=== PATIENT | female | born 1980 | race Two or more races ===

== ENCOUNTER 2023-05-19 12:49 | Inpatient (IN) | payer OTHER ==
[~2023-05-19] VITALS: Ht 175.3 cm; Wt 63.6 kg
[~2023-05-19 12:49] MED LIST: ACET-2247 PO; CLIN300C58 PO; HYDR50CA7 PO; IBUP-1492 PO; QUET300T2 PO
[2023-05-19 14:40] LABS: COVID AG,FIA SOURCE NASAL SWAB
[2023-05-19 15:07] LABS: INFLUENZA TYPE A NEGATIVE FOR TYPE A (NEGATIVE); INFLUENZA TYPE B NEGATIVE FOR TYPE B (NEGATIVE)
[2023-05-19 15:19] LABS: SARS-COV2 (COVID) ANTIGEN,FIA Positive (Negative)
[2023-05-19 15:39] LABS: BASOPHILS % (AUTO) 0.4 % (0.0-2.0); EOSINOPHILS % (AUTO) 3.6 % (1.0-6.0); HEMATOCRIT 44.6 % (36-46); LYMPHOCYTES # (AUTO) 1.8 K/uL (1.0-4.8); LYMPHOCYTES % (AUTO) 21.9 % (22.0-44.0); MEAN CORPUSCULAR HGB CONC 33.6 G/dL (31.0-37.0); MEAN CORPUSCULAR VOLUME 86 fL (80-100); MONOCYTES # (AUTO) 0.5 K/uL (0.1-1.0); MONOCYTES % (AUTO) 5.5 % (2.0-9.0); NEUTROPHILS # (AUTO) 5.7 K/uL (1.8-7.7); NEUTROPHILS % (AUTO) 68.6 % (40.0-70.0); PLATELET COUNT (AUTO) 263 K/uL (150-450); RED BLOOD CELL COUNT(AUTO) 5.16 MIL/uL (4.00-5.20); RED CELL DISTRIBUTION WIDTH 15.8 % (11.5-14.5); WHITE BLOOD COUNT (AUTO) 8.2 K/uL (4.5-11.0)
[2023-05-19 15:42] LABS: ANION GAP 8 mmol/L (8-16); CALCIUM, TOTAL 9.3 mg/dL (8.8-10.5); CARBON DIOXIDE 28 mmol/L (22-29); CHLORIDE 107 mmol/L (98-107); CREATININE 0.72 mg/dL (0.60-1.30); GLOMERULAR FILTR. RATE CALC > 60 mL/min (>60); GLUCOSE,RANDOM 102 mg/dL (70-110); POTASSIUM 4.2 mmol/L (3.5-5.1); SODIUM SERUM 143 mmol/L (136-145); UREA NITROGEN, BLOOD 10 mg/dL (7-18)
[2023-05-19 15:48] LABS: ALANINE AMINOTRANSFERASE 29 U/L (12-78); ALBUMIN 4.6 g/dL (3.4-5.0); ALKALINE PHOSPHATASE 70 U/L (46-116); ASPARTATE AMINOTRANSFERASE 24 U/L (15-37); BILIRUBIN,TOTAL 0.4 mg/dL (0.1-1.0); TOTAL PROTEIN, SERUM 8.4 g/dL (6.4-8.2)
[2023-05-19] MEDS ORDERED: 0.9% SODIUM CHLORIDE 15 ML NEB SOLUTION NEB ONE (16:08)
[2023-05-19] MEDS ORDERED: MAGNESIUM HYDROXIDE SUSPENSION 30 ML UDCUP PO PRN (16:15)
[2023-05-19] MEDS ORDERED: IPRATROPIUM BROMIDE 0.5 MG/2.5 ML NEB SOLUTION NEB PRN (16:15)
[2023-05-19] MEDS ORDERED: ONDANSETRON HCL 4 MG/2 ML VIAL IVP PRN (16:15)
[2023-05-19] MEDS ORDERED: ALBUTEROL SULFATE 2.5 MG/0.5 ML NEB SOLUTION NEB PRN (16:15)
[2023-05-19] MEDS ORDERED: BISACODYL 10 MG RECTAL RECTAL SUPPOSITORY PR PRN (16:15)
[2023-05-19 16:43] VITALS: BP 141/98; PULSE 62; RESP 18; TEMP 97.9; O2SAT 99
[2023-05-19] MEDS: HydrOXYzine PAMOATE 50 MG CAPSULE PO PRN ×2 (17:27→23:38)
[2023-05-19] MEDS: DOCUSATE SODIUM 100 MG CAPSULE PO SCH (20:29)
[2023-05-19] MEDS: CLINDAMYCIN HCL 300 MG CAPSULE PO SCH (20:29)
[2023-05-19] MEDS: QUEtiapine FUMARATE 300 MG TABLET PO SCH (20:29)
[2023-05-19] MEDS ORDERED: IOHEXOL 350 MG/ML 100 ML VIAL ONE (20:38)
[2023-05-19] MEDS ORDERED: SODIUM CHLORIDE 0.9% 100 ML ONE (20:38)
[2023-05-19 21:08] VITALS: BP 110/57; PULSE 66; RESP 18; TEMP 97.6; O2SAT 95
[2023-05-19] MEDS: ZOLPIDEM TARTRATE 5 MG TABLET PO PRN (21:22)
[2023-05-19] MEDS: HEPARIN SODIUM,PORCINE 5,000 UNITS/ML VIAL SQ SCH (23:38)
[2023-05-20 02:07] LABS: HIV 1-2 SCREEN 4TH GEN W/RFLX Non Reactive (Non Reactive)
[2023-05-20 06:06] VITALS: BP 114/76; PULSE 67; RESP 20; TEMP 97.8; O2SAT 96
[2023-05-20 07:53] VITALS: BP 118/78; PULSE 68; RESP 20; TEMP 98.2; O2SAT 97
[2023-05-20] MEDS: DOCUSATE SODIUM 100 MG CAPSULE PO SCH ×2 (08:59→21:00)
[2023-05-20] MEDS: HydrOXYzine PAMOATE 50 MG CAPSULE PO PRN ×3 (08:59→21:32)
[2023-05-20] MEDS: HEPARIN SODIUM,PORCINE 5,000 UNITS/ML VIAL SQ SCH ×3 (08:59→23:01)
[2023-05-20] MEDS: CLINDAMYCIN HCL 300 MG CAPSULE PO SCH ×4 (08:59→21:28)
[2023-05-20] MEDS: PANTOPRAZOLE SODIUM 40 MG/VIAL IVP SCH (08:59)
[2023-05-20] MEDS ORDERED: SODIUM CHLORIDE 3% 15 ML NEB SOLUTION NEB ONE ×2 (09:34→19:19)
[2023-05-20 15:33] VITALS: BP 124/74; PULSE 70; RESP 18; TEMP 97.9; O2SAT 96
[2023-05-20] MEDS ORDERED: 0.9% SODIUM CHLORIDE 5 ML NEB SOLUTION NEB ONE (19:28)
[2023-05-20 20:56] VITALS: BP 113/75; PULSE 76; RESP 18; TEMP 98.2; O2SAT 95
[2023-05-20] MEDS: QUEtiapine FUMARATE 300 MG TABLET PO SCH (21:28)
[2023-05-20] MEDS: IBUPROFEN 600 MG TABLET PO PRN (21:32)
[2023-05-21 05:21] VITALS: BP 120/78; PULSE 65; RESP 20; TEMP 98.6; O2SAT 95
[2023-05-21] MEDS: HEPARIN SODIUM,PORCINE 5,000 UNITS/ML VIAL SQ SCH ×3 (08:00→16:25)
[2023-05-21] MEDS: PANTOPRAZOLE SODIUM 40 MG/VIAL IVP SCH (09:09)
[2023-05-21] MEDS: DOCUSATE SODIUM 100 MG CAPSULE PO SCH ×2 (09:10→21:40)
[2023-05-21] MEDS: CLINDAMYCIN HCL 300 MG CAPSULE PO SCH ×4 (09:10→22:03)
[2023-05-21 09:37] VITALS: BP 107/68; PULSE 66; RESP 18; TEMP 98; O2SAT 96
[2023-05-21] MEDS: HydrOXYzine PAMOATE 50 MG CAPSULE PO PRN ×3 (09:48→21:38)
[2023-05-21 16:15] VITALS: BP 112/72; PULSE 62; RESP 18; TEMP 98.3; O2SAT 97
[2023-05-21] MEDS: ACETAMINOPHEN 325 MG TABLET PO PRN (21:39)
[2023-05-21] MEDS: ZOLPIDEM TARTRATE 5 MG TABLET PO PRN (21:41)
[2023-05-21] MEDS: QUEtiapine FUMARATE 300 MG TABLET PO SCH (22:03)
[2023-05-21 23:06] LABS: QUANTIFERON+, Nil Value 0.04 IU/mL; QUANTIFERON+,Mitogen Value >10.00 IU/mL; QUANTIFERON+,TB1 Antigen Value 0.14 IU/mL; QUANTIFERON+,TB2 Antigen Value 0.06 IU/mL; QUANTIFERON, TB GOLD PLUS Negative (Negative)
[2023-05-22] MEDS: HEPARIN SODIUM,PORCINE 5,000 UNITS/ML VIAL SQ SCH ×3 (00:55→15:48)
[2023-05-22 06:00] VITALS: BP 114/76; PULSE 66; RESP 18; TEMP 97.2
[2023-05-22 08:21] VITALS: BP 122/70; PULSE 64; RESP 19; TEMP 97.8
[2023-05-22] MEDS: DOCUSATE SODIUM 100 MG CAPSULE PO SCH ×2 (09:05→20:45)
[2023-05-22] MEDS: PANTOPRAZOLE SODIUM 40 MG/VIAL IVP SCH (09:05)
[2023-05-22] MEDS: CLINDAMYCIN HCL 300 MG CAPSULE PO SCH ×4 (09:05→20:45)
[2023-05-22] MEDS: IBUPROFEN 600 MG TABLET PO PRN ×2 (09:07→20:45)
[2023-05-22] MEDS: HydrOXYzine PAMOATE 50 MG CAPSULE PO PRN ×3 (09:13→20:44)
[2023-05-22 17:10] VITALS: BP 124/82; PULSE 65; RESP 18; TEMP 98
[2023-05-22 20:29] VITALS: BP 120/63; PULSE 61; RESP 18; TEMP 98.7
[2023-05-22] MEDS: ZOLPIDEM TARTRATE 5 MG TABLET PO PRN (20:45)
[2023-05-22] MEDS: QUEtiapine FUMARATE 300 MG TABLET PO SCH (20:45)
[2023-05-23] MEDS: HEPARIN SODIUM,PORCINE 5,000 UNITS/ML VIAL SQ SCH ×4 (01:14→16:12)
[2023-05-23 04:38] VITALS: BP 136/59; PULSE 79; RESP 18; TEMP 97.9
[2023-05-23] MEDS: CLINDAMYCIN HCL 300 MG CAPSULE PO SCH ×4 (08:58→21:29)
[2023-05-23] MEDS: HydrOXYzine PAMOATE 50 MG CAPSULE PO PRN ×2 (08:58→16:12)
[2023-05-23] MEDS: PANTOPRAZOLE SODIUM 40 MG/VIAL IVP SCH (08:58)
[2023-05-23] MEDS: DOCUSATE SODIUM 100 MG CAPSULE PO SCH ×2 (08:58→21:00)
[2023-05-23 09:53] VITALS: BP 116/72; PULSE 74; RESP 19; TEMP 98.7
[2023-05-23 16:00] VITALS: BP 122/74; PULSE 68; RESP 18; TEMP 98.4
[2023-05-23 20:02] VITALS: BP 105/74; PULSE 69; RESP 18; TEMP 98.2
[2023-05-23 20:55] VITALS: PULSE 71; RESP 18; O2SAT 98
[2023-05-23 20:58] VITALS: PULSE 73; RESP 20; O2SAT 98
[2023-05-23] MEDS: QUEtiapine FUMARATE 300 MG TABLET PO SCH (21:29)
[2023-05-23] MEDS: ZOLPIDEM TARTRATE 5 MG TABLET PO PRN (21:30)
[2023-05-24 04:12] VITALS: BP 117/76; PULSE 74; RESP 18; TEMP 97.7
[2023-05-24] MEDS: HEPARIN SODIUM,PORCINE 5,000 UNITS/ML VIAL SQ SCH ×5 (08:00→16:07)
[2023-05-24 08:09] VITALS: BP 118/83; PULSE 84; RESP 18; TEMP 97.2
[2023-05-24] MEDS: DOCUSATE SODIUM 100 MG CAPSULE PO SCH ×2 (09:12→21:00)
[2023-05-24] MEDS: CLINDAMYCIN HCL 300 MG CAPSULE PO SCH ×4 (09:12→21:17)
[2023-05-24] MEDS: PANTOPRAZOLE SODIUM 40 MG DR TABLET PO SCH (09:12)
[2023-05-24] MEDS: HydrOXYzine PAMOATE 50 MG CAPSULE PO PRN (09:21)
[2023-05-24] MEDS ORDERED: LORazepam 2 MG TABLET PO ONE (16:00)
[2023-05-24 17:08] VITALS: BP 122/86; PULSE 86; RESP 18; TEMP 97.8
[2023-05-24 17:28] LABS: COVID AG,FIA SOURCE NASAL SWAB
[2023-05-24 18:03] LABS: SARS-COV2 (COVID) ANTIGEN,FIA Negative (Negative)
[2023-05-24 19:55] VITALS: BP 113/78; PULSE 93; RESP 16; TEMP 98.6
[2023-05-24] MEDS: TraZODone HCL 100 MG TABLET PO SCH (21:17)
[2023-05-24] MEDS: QUEtiapine FUMARATE 300 MG TABLET PO SCH (21:17)
[2023-05-25] MEDS: ZOLPIDEM TARTRATE 5 MG TABLET PO PRN (00:36)
[2023-05-25] MEDS: IBUPROFEN 600 MG TABLET PO PRN (00:36)
[2023-05-25] MEDS: HydrOXYzine PAMOATE 50 MG CAPSULE PO PRN ×2 (00:36→11:42)
[2023-05-25] MEDS ORDERED: LORazepam 2 MG TABLET PO ONE (03:15)
[2023-05-25 04:25] VITALS: BP 131/93; PULSE 100; RESP 20; TEMP 98.4
[2023-05-25] MEDS: HEPARIN SODIUM,PORCINE 5,000 UNITS/ML VIAL SQ SCH ×4 (08:00→23:14)
[2023-05-25 08:07] VITALS: BP 132/85; PULSE 103; RESP 20
[2023-05-25] MEDS: DOCUSATE SODIUM 100 MG CAPSULE PO SCH ×2 (09:26→21:03)
[2023-05-25] MEDS: PANTOPRAZOLE SODIUM 40 MG DR TABLET PO SCH (09:26)
[2023-05-25] MEDS: CLINDAMYCIN HCL 300 MG CAPSULE PO SCH ×4 (09:26→21:03)
[2023-05-25] MEDS ORDERED: HALOPERIDOL DECANOATE 50 MG/ML VIAL IM ONE (12:00)
[2023-05-25] MEDS ORDERED: HALOPERIDOL LACTATE 5 MG/ML VIAL IM ONE (12:15)
[2023-05-25 20:57] VITALS: BP 134/69; PULSE 91; RESP 18; TEMP 98.4
[2023-05-25] MEDS: QUEtiapine FUMARATE 300 MG TABLET PO SCH (21:03)
[2023-05-25] MEDS: TraZODone HCL 100 MG TABLET PO SCH (21:03)
[2023-05-26 03:56] VITALS: BP 116/92; PULSE 90; RESP 18; TEMP 97.9
[2023-05-26 07:55] VITALS: BP 117/76; PULSE 79; RESP 18; TEMP 98
[2023-05-26] MEDS: HEPARIN SODIUM,PORCINE 5,000 UNITS/ML VIAL SQ SCH ×2 (08:00→16:00)
[2023-05-26] MEDS: ISONIAZID 300 MG TABLET PO SCH (09:00)
[2023-05-26] MEDS: RIFAMPIN 300 MG CAPSULE PO SCH (09:00)
[2023-05-26] MEDS: DOCUSATE SODIUM 100 MG CAPSULE PO SCH ×2 (09:00→20:47)
[2023-05-26] MEDS: ETHAMBUTOL HCL 400 MG TABLET PO SCH (09:00)
[2023-05-26] MEDS: CLINDAMYCIN HCL 300 MG CAPSULE PO SCH ×4 (09:00→20:39)
[2023-05-26] MEDS: PYRAZINAMIDE 500 MG TABLET PO SCH (09:00)
[2023-05-26] MEDS: HydrOXYzine PAMOATE 50 MG CAPSULE PO PRN (09:00)
[2023-05-26] MEDS: PYRIDOXINE HCL 50 MG TABLET PO SCH (09:00)
[2023-05-26] MEDS: PANTOPRAZOLE SODIUM 40 MG DR TABLET PO SCH (09:00)
[2023-05-26 15:25] VITALS: BP 109/73; PULSE 71; RESP 18; TEMP 98.4
[2023-05-26 19:50] VITALS: BP 110/75; PULSE 84; RESP 18; TEMP 98.2
[2023-05-26] MEDS: TraZODone HCL 100 MG TABLET PO SCH (20:39)
[2023-05-26] MEDS: QUEtiapine FUMARATE 300 MG TABLET PO SCH (20:39)
[2023-05-27] MEDS: HEPARIN SODIUM,PORCINE 5,000 UNITS/ML VIAL SQ SCH ×4 (00:31→23:53)
[2023-05-27] MEDS: HydrOXYzine PAMOATE 50 MG CAPSULE PO PRN ×4 (00:37→23:58)
[2023-05-27 04:00] VITALS: BP 101/67; PULSE 77; RESP 18; TEMP 98.5
[2023-05-27] MEDS: IBUPROFEN 600 MG TABLET PO PRN ×2 (06:25→10:55)
[2023-05-27 08:34] VITALS: BP 108/68; PULSE 82; RESP 18; TEMP 98.4
[2023-05-27] MEDS: RIFAMPIN 300 MG CAPSULE PO SCH (09:23)
[2023-05-27] MEDS: PYRIDOXINE HCL 50 MG TABLET PO SCH (09:23)
[2023-05-27] MEDS: PANTOPRAZOLE SODIUM 40 MG DR TABLET PO SCH (09:23)
[2023-05-27] MEDS: DOCUSATE SODIUM 100 MG CAPSULE PO SCH ×2 (09:23→21:07)
[2023-05-27] MEDS: CLINDAMYCIN HCL 300 MG CAPSULE PO SCH ×4 (09:23→21:07)
[2023-05-27] MEDS: PYRAZINAMIDE 500 MG TABLET PO SCH (09:23)
[2023-05-27] MEDS: ISONIAZID 300 MG TABLET PO SCH (09:24)
[2023-05-27] MEDS: ETHAMBUTOL HCL 400 MG TABLET PO SCH (09:24)
[2023-05-27 15:38] VITALS: BP 110/72; PULSE 86; RESP 18; TEMP 98.7
[2023-05-27 20:24] VITALS: BP 107/65; PULSE 76; RESP 18; TEMP 98.2
[2023-05-27] MEDS: TraZODone HCL 100 MG TABLET PO SCH (21:07)
[2023-05-27] MEDS: QUEtiapine FUMARATE 300 MG TABLET PO SCH (21:07)
[2023-05-28] MEDS: ZOLPIDEM TARTRATE 5 MG TABLET PO PRN ×2 (02:18→21:20)
[2023-05-28 02:26] VITALS: BP 110/76; PULSE 69; RESP 18; TEMP 97.7
[2023-05-28] MEDS: HydrOXYzine PAMOATE 50 MG CAPSULE PO PRN ×3 (06:42→21:45)
[2023-05-28] MEDS: ETHAMBUTOL HCL 400 MG TABLET PO SCH (09:31)
[2023-05-28] MEDS: PYRAZINAMIDE 500 MG TABLET PO SCH (09:31)
[2023-05-28] MEDS: RIFAMPIN 300 MG CAPSULE PO SCH (09:32)
[2023-05-28] MEDS: PANTOPRAZOLE SODIUM 40 MG DR TABLET PO SCH (09:32)
[2023-05-28] MEDS: CLINDAMYCIN HCL 300 MG CAPSULE PO SCH ×4 (09:33→20:24)
[2023-05-28] MEDS: ISONIAZID 300 MG TABLET PO SCH (09:33)
[2023-05-28] MEDS: HEPARIN SODIUM,PORCINE 5,000 UNITS/ML VIAL SQ SCH ×2 (09:33→16:01)
[2023-05-28] MEDS: PYRIDOXINE HCL 50 MG TABLET PO SCH (09:33)
[2023-05-28] MEDS: DOCUSATE SODIUM 100 MG CAPSULE PO SCH ×2 (09:33→20:31)
[2023-05-28 10:00] VITALS: BP 109/74; PULSE 74; RESP 18; TEMP 98.6
[2023-05-28] MEDS: IBUPROFEN 600 MG TABLET PO PRN (11:07)
[2023-05-28] MEDS: ACETAMINOPHEN 325 MG TABLET PO PRN (17:48)
[2023-05-28] MEDS: QUEtiapine FUMARATE 300 MG TABLET PO SCH (20:24)
[2023-05-28] MEDS: TraZODone HCL 100 MG TABLET PO SCH (20:24)
[2023-05-28 20:36] VITALS: BP 101/73; PULSE 69; RESP 20; TEMP 97.8
[2023-05-29] MEDS: HEPARIN SODIUM,PORCINE 5,000 UNITS/ML VIAL SQ SCH ×4 (01:31→23:28)
[2023-05-29 06:00] VITALS: BP 106/75; PULSE 73; RESP 18; TEMP 97.7
[2023-05-29] MEDS: HydrOXYzine PAMOATE 50 MG CAPSULE PO PRN ×3 (06:06→20:49)
[2023-05-29] MEDS: RIFAMPIN 300 MG CAPSULE PO SCH (08:31)
[2023-05-29] MEDS: PYRIDOXINE HCL 50 MG TABLET PO SCH (08:32)
[2023-05-29] MEDS: DOCUSATE SODIUM 100 MG CAPSULE PO SCH ×2 (08:32→20:49)
[2023-05-29] MEDS: ISONIAZID 300 MG TABLET PO SCH (08:32)
[2023-05-29] MEDS: PYRAZINAMIDE 500 MG TABLET PO SCH (08:32)
[2023-05-29] MEDS: PANTOPRAZOLE SODIUM 40 MG DR TABLET PO SCH (08:32)
[2023-05-29] MEDS: ETHAMBUTOL HCL 400 MG TABLET PO SCH (08:32)
[2023-05-29] MEDS: CLINDAMYCIN HCL 300 MG CAPSULE PO SCH ×4 (08:32→20:49)
[2023-05-29] MEDS: IBUPROFEN 600 MG TABLET PO PRN ×2 (08:33→20:49)
[2023-05-29 11:30] VITALS: BP 106/67; PULSE 71; RESP 18; TEMP 98.5
[2023-05-29 13:01] LABS: GLUCOMETER DEV NAME(LOC) 4E.2; GLUCOSE,POINT OF CARE 148 MG/DL (70-110)
[2023-05-29 20:47] VITALS: BP 110/64; PULSE 67; RESP 18; TEMP 97.5
[2023-05-29] MEDS: ZOLPIDEM TARTRATE 5 MG TABLET PO PRN (20:49)
[2023-05-29] MEDS: QUEtiapine FUMARATE 300 MG TABLET PO SCH (20:49)
[2023-05-29] MEDS: TraZODone HCL 100 MG TABLET PO SCH (20:49)
[2023-05-30 05:10] VITALS: BP 104/65; PULSE 80; RESP 20; TEMP 98.4
[2023-05-30] MEDS: DOCUSATE SODIUM 100 MG CAPSULE PO SCH ×2 (08:35→20:09)
[2023-05-30] MEDS: ISONIAZID 300 MG TABLET PO SCH (08:35)
[2023-05-30] MEDS: PYRAZINAMIDE 500 MG TABLET PO SCH (08:35)
[2023-05-30] MEDS: RIFAMPIN 300 MG CAPSULE PO SCH (08:35)
[2023-05-30] MEDS: CLINDAMYCIN HCL 300 MG CAPSULE PO SCH ×4 (08:35→20:09)
[2023-05-30] MEDS: PANTOPRAZOLE SODIUM 40 MG DR TABLET PO SCH (08:36)
[2023-05-30] MEDS: HEPARIN SODIUM,PORCINE 5,000 UNITS/ML VIAL SQ SCH ×3 (08:36→17:41)
[2023-05-30] MEDS: ETHAMBUTOL HCL 400 MG TABLET PO SCH (08:36)
[2023-05-30] MEDS: PYRIDOXINE HCL 50 MG TABLET PO SCH (08:38)
[2023-05-30 09:27] VITALS: BP 113/73; PULSE 72; RESP 19; TEMP 98.1
[2023-05-30] MEDS: HydrOXYzine PAMOATE 50 MG CAPSULE PO PRN ×2 (10:31→17:56)
[2023-05-30 11:31] LABS: BASOPHILS % (AUTO) 0.9 % (0.0-2.0); EOSINOPHILS % (AUTO) 4.5 % (1.0-6.0); HEMATOCRIT 38.9 % (36-46); HEMOGLOBIN 13.2 g/dL (12.0-16.0); LYMPHOCYTES # (AUTO) 1.8 K/uL (1.0-4.8); LYMPHOCYTES % (AUTO) 35.8 % (22.0-44.0); MEAN CORPUSCULAR HEMOGLOBIN 29.4 pg (26.0-34.0); MEAN CORPUSCULAR HGB CONC 33.9 G/dL (31.0-37.0); MEAN CORPUSCULAR VOLUME 87 fL (80-100); MONOCYTES # (AUTO) 0.3 K/uL (0.1-1.0); NEUTROPHILS # (AUTO) 2.6 K/uL (1.8-7.7); NEUTROPHILS % (AUTO) 52.8 % (40.0-70.0); PLATELET COUNT (AUTO) 266 K/uL (150-450); RED BLOOD CELL COUNT(AUTO) 4.48 MIL/uL (4.00-5.20); RED CELL DISTRIBUTION WIDTH 16.1 % (11.5-14.5)
[2023-05-30 11:45] LABS: ANION GAP 2 mmol/L (8-16); CALCIUM, TOTAL 8.7 mg/dL (8.8-10.5); CARBON DIOXIDE 32 mmol/L (22-29); CHLORIDE 104 mmol/L (98-107); CREATININE 0.73 mg/dL (0.60-1.30); GLOMERULAR FILTR. RATE CALC > 60 mL/min (>60); GLUCOSE,RANDOM 93 mg/dL (70-110); POTASSIUM 4.4 mmol/L (3.5-5.1); SODIUM SERUM 138 mmol/L (136-145); UREA NITROGEN, BLOOD 13 mg/dL (7-18)
[2023-05-30 11:49] LABS: ALANINE AMINOTRANSFERASE 14 U/L (12-78); ALBUMIN 3.5 g/dL (3.4-5.0); ALKALINE PHOSPHATASE 56 U/L (46-116); ASPARTATE AMINOTRANSFERASE 9 U/L (15-37); BILIRUBIN,TOTAL 0.3 mg/dL (0.1-1.0); TOTAL PROTEIN, SERUM 6.5 g/dL (6.4-8.2)
[2023-05-30] MEDS: ACETAMINOPHEN 325 MG TABLET PO PRN (15:06)
[2023-05-30] MEDS: TraZODone HCL 100 MG TABLET PO SCH (20:09)
[2023-05-30] MEDS: QUEtiapine FUMARATE 300 MG TABLET PO SCH (20:09)
[2023-05-30] MEDS: ZOLPIDEM TARTRATE 5 MG TABLET PO PRN (20:34)
[2023-05-30 20:46] VITALS: BP 110/70; PULSE 70; RESP 19; TEMP 98.1
[2023-05-31] MEDS: HEPARIN SODIUM,PORCINE 5,000 UNITS/ML VIAL SQ SCH ×4 (00:17→16:00)
[2023-05-31] MEDS: HydrOXYzine PAMOATE 50 MG CAPSULE PO PRN ×2 (03:33→10:57)
[2023-05-31 03:41] VITALS: BP 115/70; PULSE 71; RESP 18; TEMP 97.7
[2023-05-31] MEDS: PANTOPRAZOLE SODIUM 40 MG DR TABLET PO SCH ×2 (09:00→09:07)
[2023-05-31] MEDS: DOCUSATE SODIUM 100 MG CAPSULE PO SCH ×2 (09:00→09:07)
[2023-05-31] MEDS: PYRAZINAMIDE 500 MG TABLET PO SCH (09:06)
[2023-05-31] MEDS: ETHAMBUTOL HCL 400 MG TABLET PO SCH (09:06)
[2023-05-31] MEDS: CLINDAMYCIN HCL 300 MG CAPSULE PO SCH ×3 (09:07→16:25)
[2023-05-31] MEDS: PYRIDOXINE HCL 50 MG TABLET PO SCH (09:07)
[2023-05-31] MEDS: ISONIAZID 300 MG TABLET PO SCH (09:07)
[2023-05-31] MEDS: RIFAMPIN 300 MG CAPSULE PO SCH (09:07)
[2023-05-31 09:25] VITALS: BP 111/71; PULSE 78; RESP 20; TEMP 97.9
[2023-05-31] MEDS: ACETAMINOPHEN 325 MG TABLET PO PRN (14:45)
== END 2023-05-31 17:17 | DRG 179 ==
LOC: EMS 12:50 → 6S 15:32
PROVIDERS: ADMIT Hospitalist; ATTEND Hospitalist
DX: U07.1 COVID-19 (principal); J45.909 Unspecified asthma, uncomplicated; F41.9 Anxiety disorder, unspecified; F17.210 Nicotine dependence, cigarettes, uncomplicated; R91.8 Other nonspecific abnormal finding of lung field; I48.91 Unspecified atrial fibrillation; F25.0 Schizoaffective disorder, bipolar type
CPT/HCPCS: 70450; 71046; 71260; 80053; 82962; 84703; 85025; 86480; 86635; 87015; 87081; 87116; 87206; 87385; 87389; 87556; 87804; 94640; 99285; C9113; J1630; J1644; J7050; Q9967; 36415-L1; 36415-TC; J7613